=== PATIENT | female | born 1965 | race African-American/Black ===

== ENCOUNTER 2018-05-14 07:45 | Emergency (ER) | payer MEDICAID ==
[~2018-05-14] VITALS: Ht 165.1 cm; Wt 90.4 kg
[~2018-05-14 07:45] MED LIST: ALBU05; HYDR25TA; LOSA100T14 PO; LOSA50TA20; TRAM50TA; TRIA1CAP6 PO
[2018-05-14] MEDS ORDERED: ACETAMINOPHEN WITH CODEINE 300/30MG TABLET PO ONE (08:15)
[2018-05-14 08:50] LABS: *AMPHETAMINES SCREEN URINE NEGATIVE (NEGATIVE); *BARBITURATES SCREEN URINE NEGATIVE (NEGATIVE); *BENZODIAZEPINES SCREEN URINE NEGATIVE (NEGATIVE); *COCAINE SCREEN URINE PRESUMTIVE POSITIVE (NEGATIVE); METHADONE URINE SCREEN NEGATIVE (NEGATIVE); OPIATES URINE SCREEN NEGATIVE (NEGATIVE)
[2018-05-14 08:51] LABS: CANNABINOID URINE SCREEN PRESUMTIVE POSITIVE (NEGATIVE); PHENCYCLIDINE URINE SCREEN NEGATIVE (NEGATIVE)
[2018-05-14 09:25] VITALS: BP 143/89
== END 2018-05-14 09:30 | disposition home or self-care (01) ==
LOC: ER 07:45
DX: M54.5 Low back pain (principal); I10 Essential (primary) hypertension; F14.10 Cocaine abuse, uncomplicated; F12.10 Cannabis abuse, uncomplicated; Z98.890 Other specified postprocedural states; Z79.899 Other long term (current) drug therapy; Z91.018 Allergy to other foods
CPT/HCPCS: 72100; 80305; 99285

== ENCOUNTER 2018-10-31 09:57 | Emergency (ER) | payer MEDICAID ==
[~2018-10-31] VITALS: Ht 165.1 cm; Wt 85.0 kg
[2018-10-31 10:52] VITALS: BP 148/95
== END 2018-10-31 18:01 | disposition left against medical advice (07) ==
LOC: ER 10:44
DX: R05 Cough (principal); R09.81 Nasal congestion; Z53.21 Procedure and treatment not carried out due to patient leaving prior to being seen by health care provider

== ENCOUNTER 2021-01-19 13:22 | Emergency (ER) | payer MEDICAID ==
[~2021-01-19] VITALS: Ht 165.1 cm; Wt 103.0 kg
[~2021-01-19 13:22] MED LIST changes: -LOSA100T14 PO; +LOSA100T32 PO; -LOSA50TA20; +LOSA50TA41
[2021-01-19 13:37] VITALS: BP 163/103
[2021-01-19] MEDS ORDERED: OXYMETAZOLINE HCL NASAL SPRAY 15ML BOTHNSTRLS PRN (14:15)
== END 2021-01-19 15:58 | disposition home or self-care (01) ==
LOC: ER 13:22
DX: R04.0 Epistaxis (principal); J45.909 Unspecified asthma, uncomplicated; I10 Essential (primary) hypertension; F17.200 Nicotine dependence, unspecified, uncomplicated; Z91.02 Food additives allergy status; Z98.890 Other specified postprocedural states
CPT/HCPCS: 99282

== ENCOUNTER 2024-01-08 12:15 | Emergency (ER) | payer MEDICAID ==
[~2024-01-08] VITALS: Ht 172.7 cm; Wt 86.0 kg
[~2024-01-08 12:15] MED LIST changes: +ALBU2.5V13 NEB; +ALBU90AE INH; +AMLO10TA80 PO; +FLUT1AER3 INH; +HYDR-4001 PO; -LOSA100T32 PO; +LOSA100T33 PO; +OMEP40CA20 PO; +POTA8CAP20 MT; +[UNRECOGNIZED DRUG - CODE] PO
[2024-01-08 12:21] VITALS: BP 135/90; TEMP 98.2; O2SAT 100
[2024-01-08 12:22] VITALS: PULSE 110; RESP 16
[2024-01-08] MEDS: KETOROLAC 15MG/ML VIAL IM ONE (16:29)
== END 2024-01-08 15:40 ==
LOC: ER 12:15
DX: R04.0 Epistaxis (principal); J45.909 Unspecified asthma, uncomplicated; I10 Essential (primary) hypertension; Z79.899 Other long term (current) drug therapy
CPT/HCPCS: 96372; 99283; J1885; Z7610

== ENCOUNTER 2025-01-23 07:41 | Emergency (ER) | payer MEDICAID, OTHER ==
[~2025-01-23] VITALS: Ht 165.1 cm; Wt 79.0 kg
[~2025-01-23 07:41] MED LIST changes: +IRBE75TA16 PO; -[UNRECOGNIZED DRUG - CODE] PO
[2025-01-23 07:51] VITALS: O2SAT 100
[2025-01-23] MEDS ORDERED: METH4TAB95 MT (08:41)
[2025-01-23] MEDS ORDERED: COLC0.6C3 MT (08:41)
[2025-01-23 08:43] VITALS: BP 138/87; PULSE 98; RESP 16; TEMP 36.9; O2SAT 100
[2025-01-23] MEDS: DEXAMETHASONE 10 MG/ML VIAL IM ONE (09:00)
[2025-01-23] MEDS: COLCHICINE 0.6MG TABLET PO ONE (09:00)
== END 2025-01-23 10:06 | disposition home or self-care (01) ==
LOC: ER 07:47
DX: M10.9 Gout, unspecified (principal); I10 Essential (primary) hypertension; J45.909 Unspecified asthma, uncomplicated; M19.90 Unspecified osteoarthritis, unspecified site; F12.90 Cannabis use, unspecified, uncomplicated; Z79.51 Long term (current) use of inhaled steroids; Z79.899 Other long term (current) drug therapy; Z96.649 Presence of unspecified artificial hip joint
CPT/HCPCS: 99283; 73630; 96372; J1100

== ENCOUNTER 2025-02-05 06:45 | Emergency (ER) | payer OTHER ==
[~2025-02-05] VITALS: Ht 165.1 cm; Wt 82.0 kg
[~2025-02-05 06:45] MED LIST changes: +COLC0.6C3 MT; +METH4TAB95 MT
[2025-02-05 07:21] VITALS: O2SAT 99
[2025-02-05 09:01] VITALS: BP 140/75; PULSE 79; RESP 14; TEMP 36.7; O2SAT 100
== END 2025-02-05 09:05 | disposition home or self-care (01) ==
LOC: ER 06:55
DX: S00.411A Abrasion of right ear, initial encounter (principal); J45.909 Unspecified asthma, uncomplicated; M19.90 Unspecified osteoarthritis, unspecified site; Z79.51 Long term (current) use of inhaled steroids; H61.21 Impacted cerumen, right ear; I10 Essential (primary) hypertension; F10.90 Alcohol use, unspecified, uncomplicated; Z79.899 Other long term (current) drug therapy; X58.XXXA Exposure to other specified factors, initial encounter; Y93.89 Activity, other specified; Y92.89 Other specified places as the place of occurrence of the external cause; Y99.8 Other external cause status; Y90.9 Presence of alcohol in blood, level not specified
CPT/HCPCS: 99281; 99282